=== PATIENT | female | born 1970 | race Caucasian/White ===

== ENCOUNTER → 2018-03-14 | Outpatient (CLI) | payer OTHER ==
[~2018-03-14] MED LIST: IOPAMIDOL (ISOVUE 370) 100 ML BTL IV ONE
== END ==
LOC: CIMAGING 09:53
PROVIDERS: ATTEND Internal Medicine Endocrinology, Diabetes & Metabolism
DX: E27.8 Other specified disorders of adrenal gland (principal)
CPT/HCPCS: 74170-PO; Q9967

== ENCOUNTER → 2019-03-05 | Outpatient (CLI) | payer OTHER | LOC: CIMAGING 08:29 ==